=== PATIENT | female | born 1990 | race Caucasian/White ===

== ENCOUNTER 2021-11-24 13:01 | Outpatient (CLI) | payer BC, SELFPAY ==
--- NOTE | ~2021-11-24 | MR_ITS ---
EXAMINATION: MR brain/brain stem wo con DATE: 11/24/2021 13:39 INDICATION: Cavernous malformation. 13 weeks . TECHNIQUE: Magnetic resonance imaging (MRI) of the brain and brainstem was performed without intraven ous contrast. COMPARISON: None. FINDINGS: There are approximately 8 scattered foci of old hemorrhage in the brain. In the right parie gurdeep lobe, there is a an 8 mm mass of increased T2-weighted signal intensity and decreased T2*weighted signal intensity with rim of decreased T2 weighted signal intensity. There is no acute ischemic infa rct. The ventricles are normal in size. The orbits are normal. The paranasal sinuses are clear. The m astoid air cells are normal. IMPRESSION: 1. Multiple foci of old hemorrhage in the brain. This result may be seen with chronic hypertension, d iffuse axonal injury, vascular malformations, and vasculitis. The largest lesion in right parietal lo be has features typical of a cavernoma. Reviewed, dictated and finalized at location A. IMPRESSION: 1. Multiple foci of old hemorrhage in the brain. This result may be seen with c hronic hypertension, diffuse axonal injury, vascular malformations, and vasculi tis. The largest lesion in right parietal lobe has features typical of a cavern steve.
== END 2021-11-24 13:02 | disposition home or self-care (01) ==
LOC: ANHIMG 13:05
PROVIDERS: Visit Provider Obstetrics & Gynecology
DX: Q28.3 Other malformations of cerebral vessels (principal); G93.9 Disorder of brain, unspecified
CPT/HCPCS: 70551

== ENCOUNTER 2021-11-25 16:45 | Outpatient (CLI) | payer BC, SELFPAY ==
[2021-11-25 17:28] LABS: Basophils Percent Auto 0.3 % (0.2-1.2); Eosinophils Percent Auto 0.2 % (0-4.4); Hematocrit 31.8 % (37.0-47.0); Hemoglobin 11.1 g/dL (12.0-15.0); Immature Granulocyte Absolute 0.05 K/mm3 (0.00-0.031); Immature Granulocyte Percent A 0.5 % (0-0.5); Lymphocytes Absolute Auto 1.76 K/mm3 (0.9-3.2); Lymphocytes Percent Auto 16.2 % (18.3-44.2); Mean Corpuscular HGB Conc 34.9 g/dl (32-36); Mean Corpuscular Hemoglobin 32.8 pg (26-34); Mean Corpuscular Volume 94.1 fl (80-100); Mean Platelet Volume 9.4 fl (7.4-10.4); Monocytes Absolute Auto 0.8 K/mm3 (0.1-0.6); Monocytes Percent Auto 7.1 % (2.6-8.5); Neutrophils Absolute Auto 8.2 K/mm3 (1.3-6.7); Neutrophils Percent Auto 75.7 % (45.5-73.1); Platelet Count Result 367 k/mm3 (150-375); Red Blood Count 3.38 M/mm3 (4.2-5.4); Red Cell Distribution Width 12.3 % (11.5-14.5); White Blood Count 10.9 K/mm3 (4.5-10.0)
[2021-11-25 18:20] LABS: HIV 1/2 Ab P24 Ag Result Negative (Negative)
[2021-11-25 18:33] LABS: Hepatitis B Surface Antigen Negative (Negative); Rubella IgG Antibody 11.2 IU/ML
[2021-11-26 15:37] LABS: Rapid Plasma Reagin Non-Reactive (NonReactive)
[2021-12-05 08:46] LABS: CF Result NEGATIVE (NEGATIVE); Ethnicity W
== END 2021-11-25 16:46 | disposition home or self-care (01) ==
LOC: ANHLAB 16:47
PROVIDERS: Visit Provider Obstetrics & Gynecology
DX: N94.89 Other specified conditions associated with female genital organs and menstrual cycle (principal)
CPT/HCPCS: 36415; 81220; 84702; 85025; 86592; 86644; 86703; 86762; 86787; 86850; 86900; 86901; 87086; 87340; G0432

== ENCOUNTER 2022-03-10 09:41 | Observation (INO) | payer BC, SELFPAY ==
[2022-03-10] VITALS (15 sets, daily range): BP systolic 106; BP diastolic 63; PULSE 104–121; TEMP 36.9; O2SAT 99–100; BMI 22.3
--- NOTE | 2022-03-10 11:03 | OBADM ---
This patient, Cindy Villanueva, admitted to the OB room [facility] for observation. Patient/family oriented to hospital policies and general routines including ID bracelet, bed and alarms, visiting hours, pain management, procedures, bathroom and other care routines, personal items, smoking policy, room service/diet, and visiting hours. Patient/Family are encouraged to report perceived risks to care and to ask questions if they do not understand what they are told or what they should do.
[2022-03-10] MEDS: DEXTROSE 5%/LACTATED RINGERS 1,000 ML 125 ML IV CONT (11:31)
[2022-03-10] MEDS: ONDANSETRON INJ 4 MG/2 ML VIAL IV PUSH (11:32)
[2022-03-10] MEDS: FAMOTIDINE 20 MG/2 ML VIAL IV PUSH (11:38)
[2022-03-10 11:47] LABS: Hematocrit 32.6 % (37.0-47.0); Hemoglobin 11.3 g/dL (12.0-15.0); Mean Corpuscular HGB Conc 34.7 g/dl (32-36); Mean Corpuscular Hemoglobin 32.5 pg (26-34); Mean Corpuscular Volume 93.7 fl (80-100); Mean Platelet Volume 8.9 fl (7.4-10.4); Platelet Count Result 397 k/mm3 (150-375); Red Blood Count 3.48 M/mm3 (4.2-5.4); Red Cell Distribution Width 12.2 % (11.5-14.5); White Blood Count 16.1 K/mm3 (4.5-10.0)
[2022-03-10 11:52] LABS: Alanine Aminotransferase 15 U/L (6-35); Albumin Level 3.6 g/dL (3.5-5.1); Alkaline Phosphatase 83 U/L (38-126); Anion Gap 9 mmol/L (8-16); Aspartate Amino Transferase 20 U/L (14-36); Bilirubin,Total 0.3 mg/dL (0.2-1.3); Blood Urea Nitrogen 10 mg/dL (7-17); Calcium 8.4 mg/dL (8.4-10.2); Carbon Dioxide 22 mmol/L (22-30); Chloride 105 mmol/L (98-107); Estimated CRCL calculation 118 ml/min; Estimated Glomerular Filt Rate > 60; Glucose 108 mg/dL (65-110); Potassium 3.4 mmol/L (3.4-5.0); Sodium 136 mmol/L (137-145)
[2022-03-10 12:20] LABS: Band Neutrophils Percent 16 % (0-6); Lymphocytes Absolute Manual 0.16 K/mm3 (1.1-4.5); Monocytes Absolute Manual 0.16 K/mm3 (0.1-0.90); Monocytes Percent Manual 1 % (3-9); Neutrophils Absolute Manual 15.77 K/mm3 (1.7-7.2); Neutrophils Percent Manual 82 % (46-73); Platelet Estimate Adequate (Adequate); Schistocytes None Seen (NORMAL); Total Cells Counted 100
--- NOTE | 2022-03-10 12:34 | PC.NURSE ---
1005--Pt reports violent N/V for past 12 hours. denies vomiting since 9:00. Currently sipping water with no vomiting. Reports mild cramping. VSS.
--- NOTE | 2022-03-10 13:54 | PC.NURSE ---
pt reports feeling better. no vomiting noted. pt willing to try sips of apple juice.
--- NOTE | 2022-03-10 15:14 | PM.OBTRLD ---
OB - Triage/Final Diagnosis Visit Information Date of evaluation: 03/10/22 Reason for evaluation: other (acute gastritis) Comments/Additional reasons for admission: I have assessed the risk for this patient, Cindy Villanueva, and determined that she would benefit from observation care. Evaluation Laboratory results: Laboratory Tests 03/10/22 03/10/22 11:26 11:26 WBC 16.1 H RBC 3.48 L Hgb 11.3 L Hct 32.6 L MCV 93.7 MCH 32.5 MCHC 34.7 RDW 12.2 Plt Count 397 H MPV 8.9 Immature Gran % (Auto) Not Reportable Neut % (Auto) Not Reportable Lymph % (Auto) Not Reportable [place] % (Auto) Not Reportable Eos % (Auto) Not Reportable Baso % (Auto) Not Reportable Lymph # (Auto) Not Reportable [place] # (Auto) Not Reportable Eos # (Auto) Not Reportable Baso # (Auto) Not Reportable Abs Immat Gran (auto) Not Reportable Absolute Neuts (auto) Not Reportable Absolute Nucleated RBC Not Reportable Total Counted 100 Neutrophils % (Manual) 82 H Band Neutrophils % 16 H Lymphocytes % (Manual) 1.0 L Monocytes % (Manual) 1 L Nucleated RBC % Not Reportable Abs Neuts (Manual) 15.77 H Abs Lymphs (Manual) 0.16 L Abs Monocytes (Manual) 0.16 Platelet Estimate Adequate Schistocytes None seen Sodium 136 L Potassium 3.4 Chloride 105 Carbon Dioxide 22 Anion Gap 9 BUN 10 Creatinine 0.50 L Estim Creat Clear Calc 118 Estimated GFR > 60 Glucose 108 Calcium 8.4 Total Bilirubin 0.3 AST 20 ALT 15 Alkaline Phosphatase 83 Total Protein 7.0 Albumin 3.6 Vital signs: Vital Signs - 24 hr 03/10/22 09:57 03/10/22 10:02 03/10/22 10:07 Temperature Pulse Rate Blood Pressure Pulse Oximetry 100 100 100 03/10/22 10:12 03/10/22 10:17 03/10/22 10:21 Temperature Pulse Rate Blood Pressure Pulse Oximetry 100 100 100 03/10/22 10:26 03/10/22 10:31 03/10/22 10:36 Temperature Pulse Rate Blood Pressure Pulse Oximetry 100 100 100 03/10/22 10:41 03/10/22 10:46 03/10/22 10:51 Temperature Pulse Rate Blood Pressure Pulse Oximetry 100 99 100 03/10/22 10:56 03/10/22 10:59 03/10/22 11:03 Temperature 98.4 F Pulse Rate 107 H Blood Pressure 106/63 Pulse Oximetry 100
--- NOTE | 2022-03-10 15:16 | PC.NURSE ---
1515--Updated Dr. Ken on pt progress. will call prescriptions for Zofran and Pepcid to pharmacy. DC orders given.
== END 2022-03-10 15:24 | disposition home or self-care (01) ==
PROVIDERS: Admitting Provider Student in an Organized Health Care Education/Training Program; Visit Provider Student in an Organized Health Care Education/Training Program
DX: O99.613 Diseases of the digestive system complicating pregnancy, third trimester (principal); K29.70 Gastritis, unspecified, without bleeding; Z3A.28 28 weeks gestation of pregnancy
CPT/HCPCS: 36415; 80053; 85025; 96361; 96374; 96375; G0378; G0379; J2405; J7121

== ENCOUNTER 2022-03-20 12:09 | Outpatient (CLI) | payer BC, SELFPAY ==
[2022-03-20 14:16] LABS: Hematocrit 32.8 % (37.0-47.0); Hemoglobin 11.3 g/dL (12.0-15.0); Mean Corpuscular HGB Conc 34.5 g/dl (32-36); Mean Corpuscular Hemoglobin 32.3 pg (26-34); Mean Corpuscular Volume 93.7 fl (80-100); Mean Platelet Volume 9.5 fl (7.4-10.4); Platelet Count Result 462 k/mm3 (150-375); Red Cell Distribution Width 12.1 % (11.5-14.5); White Blood Count 12.9 K/mm3 (4.5-10.0)
[2022-03-20 14:41] LABS: Glucose 1 Hour PP 50gm Dose 91 mg/dL
[2022-03-20 15:23] LABS: HIV 1/2 Ab P24 Ag Result Negative (Negative)
== END 2022-03-20 12:10 | disposition home or self-care (01) ==
LOC: ANHLAB 12:10
PROVIDERS: Visit Provider Student in an Organized Health Care Education/Training Program
DX: Z34.90 Encounter for supervision of normal pregnancy, unspecified, unspecified trimester (principal); Z3A.00 Weeks of gestation of pregnancy not specified
CPT/HCPCS: 36415; 82947; 85027; 86703; G0432

== ENCOUNTER 2022-05-07 11:30 | Outpatient (RCR) | payer BC, SELFPAY ==
[2022-04-30 12:17] VITALS: BP 112/64; PULSE 77
== END 2022-06-19 15:11 | disposition home or self-care (01) ==
LOC: ANHOBOP 11:30
PROVIDERS: Visit Provider Student in an Organized Health Care Education/Training Program
DX: O36.5930 Maternal care for other known or suspected poor fetal growth, third trimester, not applicable or unspecified (principal); Z3A.35 35 weeks gestation of pregnancy
CPT/HCPCS: 59025

== ENCOUNTER 2022-06-01 03:27 | Inpatient (IN) | payer BC, SELFPAY ==
[2022-06-01] VITALS (17 sets, daily range): BP systolic 118–143; BP diastolic 87–132; PULSE 57–75; RESP 16–18; TEMP 36.7–36.8; BMI 24.1
--- NOTE | 2022-06-01 03:27 | LDADM ---
This patient, Cindy Villanueva, was admitted to Labor/Delivery/Recovery 103 on 06/01/22 at 03:27. Plans for labor, pain management and were discussed with patient. Patient/family oriented to hospital policies and general routines including ID bracelet, bed and alarms, visiting hours, pain management, procedures, bathroom and other care routines, personal items, smoking policy, room service/diet and guest tray routines, security routines, and visiting hours. Patient/Family are encouraged to report perceived risks to care and to ask questions if they do not understand what they are told or what they should do. See OBIX for further documentation.
[2022-06-01 05:25] LABS: Basophils Percent Auto 0.3 % (0.2-1.2); Eosinophils Absolute Auto 0.1 K/mm3 (0-0.3); Eosinophils Percent Auto 0.7 % (0-4.4); Hematocrit 31.4 % (37.0-47.0); Hemoglobin 10.4 g/dL (12.0-15.0); Immature Granulocyte Absolute 0.08 K/mm3 (0.00-0.031); Immature Granulocyte Percent A 0.8 % (0-0.5); Lymphocytes Percent Auto 22.4 % (18.3-44.2); Mean Corpuscular HGB Conc 33.1 g/dl (32-36); Mean Corpuscular Hemoglobin 30.1 pg (26-34); Monocytes Absolute Auto 0.8 K/mm3 (0.1-0.6); Monocytes Percent Auto 7.7 % (2.6-8.5); Neutrophils Percent Auto 68.1 % (45.5-73.1); Platelet Count Result 393 k/mm3 (150-375); Red Blood Count 3.45 M/mm3 (4.2-5.4); Red Cell Distribution Width 12.9 % (11.5-14.5); White Blood Count 10.3 K/mm3 (4.5-10.0)
--- NOTE | 2022-06-01 07:20 | WPDANESEPP ---
Anes - Eval Pre Procedure Procedure: labor epidural Date/Time: 06/01/22 07:20 Surgeon: juliann Preop Diagnosis: pain during labor Pre Op Diagnosis: bleeding Patient Data Age: 31 Gender: F Height: 1.63 m Weight: 63.8 kg Last Vital Signs Temp 36.8 C 06/01/22 04:30 Pulse 59 L 06/01/22 07:15 Resp 18 06/01/22 04:30 BP 138/94 H 06/01/22 07:15 O2 Del Method Room Air 06/01/22 04:04 Allergies Allergy/AdvReac Type Severity Reaction Status Date / Time Penicillins Allergy Intermediate Hives Verified 06/01/22 03:53 Sulfa (Sulfonamide Allergy Intermediate Hives Verified 06/01/22 03:53 Antibiotics) Home Medications Medication Instructions Recorded Confirmed Type prenat.vits,opal,oso-nhau-boypj 1 tablet PO DAILY 10/07/21 06/01/22 History pseudoephedrine HCl 240 mg 240 mg PO DAILY 06/01/22 06/01/22 History tablet,extended release 24 hr (Sudafed 24 Hour) Laboratory Tests 06/01/22 06/01/22 06/01/22 05:19 05:19 05:19 WBC 10.3 K/mm3 H K/mm3 (4.5-10.0) RBC 3.45 M/mm3 L M/mm3 (4.2-5.4) Hgb 10.4 g/dL L g/dL (12.0-15.0) Hct 31.4 % L % (37.0-47.0) MCV 91.0 fl fl (80-100) MCH 30.1 pg pg (26-34) MCHC 33.1 g/dl g/dl (32-36) RDW 12.9 % % (11.5-14.5) Plt Count 393 k/mm3 H k/mm3 (150-375) MPV 11.0 fl H fl (7.4-10.4) Immature Gran % (Auto) 0.8 % H % (0-0.5) Neut % (Auto) 68.1 % % (45.5-73.1) Lymph % (Auto) 22.4 % % (18.3-44.2) [place] % (Auto) 7.7 % % (2.6-8.5) Eos % (Auto) 0.7 % % (0-4.4) Baso % (Auto) 0.3 % % (0.2-1.2) Lymph # (Auto) 2.30 K/mm3 K/mm3 (0.9-3.2) [place] # (Auto) 0.8 K/mm3 H K/mm3 (0.1-0.6) Eos # (Auto) 0.1 K/mm3 K/mm3 (0-0.3) Baso # (Auto) 0.0 K/mm3 K/mm3 (0.0-0.1) Abs Immat Gran (auto) 0.08 K/mm3 H K/mm3 (0.00-0.031) Absolute Neuts (auto) 7.0 K/mm3 H K/mm3 (1.3-6.7) Absolute Nucleated RBC 0.0 K/mm3 K/mm3 (0.0-0.012) Nucleated RBC % 0.0 % % (0.0-0.2) RPR Pending Blood Type O Positive Antibody Screen Negative Patient hx anesthesia problems: none Family hx anesthesia problems: none Results Review: All pre-operative results and documents have been reviewed as part of the pre-operative evaluation. [facility] Past Medical History Medical History Cavernous malformation History of 1 Surgical History Surgical History [place] teeth removed Family History Family History Grandparent Breast cancer Other Depression Diabetes mellitus Social History Social History Smoking status: Never smoker Tobacco type: e-cigarettes/vaping Alcohol intake: former Substance use: never Lack of Transportation: No Lack of Food: Never True Current Housing: I Have Housing Concerned About Future Housing: No Difficulty Paying Gas/Electric Bills: No Difficulty Paying for Meds: No Currently Unemployed: No Education: Don't Know Difficulty w/ Childcare or Family Care: No Living arrangements: with family Occupation/Education: occupation Additional occupation/education comments: works from home Gender identity (if verbalized by the patient): Female Sexual Orientation (if Verbalized by the Patient): Straight or Heterosexual Spiritual care concerns: No Exam Day of Procedure 06/01/22 07:20
--- NOTE | 2022-06-01 08:03 | PM.OBTRLD ---
OB - Triage/Final Diagnosis Visit Information Date of evaluation: 06/01/22 Reason for evaluation: threatened labor and other (vaginal bleeding) Comments/Additional reasons for admission: I have assessed the risk for this patient, Cindy Villanueva, and determined that she would benefit from observation care. Evaluation Laboratory results: Laboratory Tests 06/01/22 06/01/22 05:19 05:19 WBC 10.3 H RBC 3.45 L Hgb 10.4 L Hct 31.4 L MCV 91.0 MCH 30.1 MCHC 33.1 RDW 12.9 Plt Count 393 H MPV 11.0 H Immature Gran % (Auto) 0.8 H Neut % (Auto) 68.1 Lymph % (Auto) 22.4 [place] % (Auto) 7.7 Eos % (Auto) 0.7 Baso % (Auto) 0.3 Lymph # (Auto) 2.30 [place] # (Auto) 0.8 H Eos # (Auto) 0.1 Baso # (Auto) 0.0 Abs Immat Gran (auto) 0.08 H Absolute Neuts (auto) 7.0 H Absolute Nucleated RBC 0.0 Nucleated RBC % 0.0 Blood Type O Positive Antibody Screen Negative Vital signs: Vital Signs - 24 hr 06/01/22 03:33 06/01/22 03:45 06/01/22 03:35 Temperature 98.1 F Pulse Rate 71 65 Respiratory Rate 16 Blood Pressure 142/99 H 128/90 Oxygen Delivery 06/01/22 04:00 06/01/22 04:15 06/01/22 04:30 Temperature 98.3 F Pulse Rate 67 69 67 Respiratory Rate 18 Blood Pressure 118/87 127/90 133/89 Oxygen Delivery 06/01/22 04:45 06/01/22 05:15 06/01/22 05:30 Temperature Pulse Rate 69 62 61 Respiratory Rate Blood Pressure 134/93 H 126/93 H 131/90 Oxygen Delivery 06/01/22 05:45 06/01/22 06:00 06/01/22 06:15 Temperature Pulse Rate 67 75 70 Respiratory Rate Blood Pressure 135/89 124/91 H 127/94 H Oxygen Delivery 06/01/22 06:30 06/01/22 06:45 06/01/22 07:00 Temperature Pulse Rate 61 57 L 66 Respiratory Rate Blood Pressure 121/89 143/132 H 130/92 H Oxygen Delivery 06/01/22 07:15 06/01/22 07:30 06/01/22 04:04 Temperature Pulse Rate 59 L 69 Respiratory Rate Blood Pressure 138/94 H 128/93 H Oxygen Delivery Room Air 06/01/22 04:00 Temperature Pulse Rate 67 Respiratory Rate Blood Pressure 118/87 Oxygen Delivery
[2022-06-01 11:30] LABS: Rapid Plasma Reagin Non-Reactive (NonReactive)
== END 2022-06-01 08:10 | disposition home or self-care (01) | DRG 833 ==
PROVIDERS: Admitting Provider Obstetrics & Gynecology; Visit Provider Student in an Organized Health Care Education/Training Program
DX: O26.859 Spotting complicating pregnancy, unspecified trimester (principal); O60.00 Preterm labor without delivery, unspecified trimester; Z3A.00 Weeks of gestation of pregnancy not specified
CPT/HCPCS: 36415; 85025; 86592; 86850; 86900; 86901

== ENCOUNTER 2022-06-01 14:23 | Inpatient (IN) | payer BC, SELFPAY ==
[2022-06-01] VITALS (12 sets, daily range): BP systolic 117–139; BP diastolic 79–100; PULSE 64–96; TEMP 36.3–36.5; O2SAT 98–100; BMI 24.5
--- NOTE | 2022-06-01 20:54 | OBADM ---
This patient, Cindy Villanueva, admitted to the OB room Labor/Delivery/Recovery 103 for observation. Patient/family oriented to hospital policies and general routines including ID bracelet, bed and alarms, visiting hours, pain management, procedures, bathroom and other care routines, personal items, smoking policy, room service/diet, and visiting hours. Patient/Family are encouraged to report perceived risks to care and to ask questions if they do not understand what they are told or what they should do.
--- NOTE | 2022-06-01 22:17 | PC.NURSE ---
Dr. ken called for an update on patient. I was unavailable to take the cll. Before calling him back, I went to check on the patient to see if she needed anything. She stated that she had small 'teaspoon amount of clear fluid earlier, more than her normal discharge. While speaking she said it just happened again. When I went to look at fluid, patient had about a paper side amount of bright red blood on her jimmy and a nickel sized clot. I relayed this information to Dr. Ken, as well as her lower abdominal pain when this happened, uncertainty of ROM, irregular contractions and patient is feeling them and reassuring FHR. Orders to make patient inpatient and start induction by placing cervidil if she was agreeable to plan of care.
--- NOTE | 2022-06-01 22:28 | LDADM ---
This patient, Cindy Villanueva, was admitted to Labor/Delivery/Recovery 103 on 06/01/22 at 22:28. Plans for labor, pain management and were discussed with patient. Patient/family oriented to hospital policies and general routines including ID bracelet, bed and alarms, visiting hours, pain management, procedures, bathroom and other care routines, personal items, smoking policy, room service/diet and guest tray routines, security routines, and visiting hours. Patient/Family are encouraged to report perceived risks to care and to ask questions if they do not understand what they are told or what they should do. See OBIX for further documentation.
[2022-06-01] MEDS: DINOPROSTONE 10 MG VAG INSERT VAGINAL (23:03)
[2022-06-01 23:19] LABS: Basophils Percent Auto 0.2 % (0.2-1.2); Eosinophils Absolute Auto 0.1 K/mm3 (0-0.3); Eosinophils Percent Auto 0.4 % (0-4.4); Hematocrit 30.8 % (37.0-47.0); Hemoglobin 10.2 g/dL (12.0-15.0); Immature Granulocyte Absolute 0.07 K/mm3 (0.00-0.031); Immature Granulocyte Percent A 0.5 % (0-0.5); Lymphocytes Absolute Auto 2.34 K/mm3 (0.9-3.2); Lymphocytes Percent Auto 18.2 % (18.3-44.2); Mean Corpuscular HGB Conc 33.1 g/dl (32-36); Mean Corpuscular Hemoglobin 29.7 pg (26-34); Mean Corpuscular Volume 89.5 fl (80-100); Mean Platelet Volume 11.2 fl (7.4-10.4); Monocytes Absolute Auto 1.1 K/mm3 (0.1-0.6); Monocytes Percent Auto 8.1 % (2.6-8.5); Neutrophils Absolute Auto 9.4 K/mm3 (1.3-6.7); Neutrophils Percent Auto 72.6 % (45.5-73.1); Platelet Count Result 402 k/mm3 (150-375); Red Blood Count 3.44 M/mm3 (4.2-5.4); Red Cell Distribution Width 12.9 % (11.5-14.5); White Blood Count 12.9 K/mm3 (4.5-10.0)
--- NOTE | 2022-06-01 23:31 | PC.NURSE ---
Called Dr. Mix to update him on patient. Cervidil was placed at 2300 and since then she has had 3 gushed of bleeding with clots, and she feels pain with the gushes. Orders to pull the cervidil and give terbutaline to stop the contractions. Orders to give up to 3 doses of terbutaline as needed. If patient continues to bleed after slowing things down, orders to call him to update.
[2022-06-01] MEDS: TERBUTALINE SULFATE 1 MG/ML VIAL 0.25 MG SUB-Q (23:41)
--- NOTE | 2022-06-01 23:53 | PC.NURSE ---
Addendum entered by Carrie Molina RN 06/02/22 01:21: 0120 blood cot the size of half dollar after a cough Original Note: Gushes of blood at the following times: 2200 paper sized bright red blood with small clot 2255 with red tinged fluid noted 2327 bleeding with small clot 2328 paper sized bright red blood with small clot 2350 with some fluid noted
[2022-06-02] VITALS (103 sets, daily range): BP systolic 97–141; BP diastolic 57–92; PULSE 58–108; RESP 15–18; TEMP 36.2–37.6; O2SAT 86–100
[2022-06-02] MEDS: fentaNYL CITRATE INJ (*CRX) 100 MCG/2 ML VIAL 50 MCG IV PUSH (04:57)
[2022-06-02] MEDS: fentaNYL CITRATE INJ (*CRX) 100 MCG/2 ML VIAL IV PUSH ×2 (06:46→08:55)
--- NOTE | 2022-06-02 07:37 | PM.IMHP ---
H&P: HPI History of Present Illness Date/Time: 06/02/22 07:37 Chief Complaint: vaginal bleeding intrauterine at term Narrative: 31 yo G1 at 40w3d who presents with complaint of vaginal bleeding in the setting of low lying placenta. Pt was having irregular contractions. Pt had cervidil placed last night in attempt to ripen the cervix. Cervidil caused more bleeding. Cervix remained unchanged. FHT remained reassuring. discussed unchanged cervix and continued bleeding. Review of Systems Cardiovascular: Cardiovascular: Denies chest pain, Denies leg edema, Denies palpitations, Denies dyspnea and Denies dyspnea on exertion Respiratory: Respiratory: Denies cough, Denies dyspnea and Denies dyspnea on exertion Gastrointestinal: Gastrointestinal: Denies abdominal pain, Denies constipation, Denies diarrhea, Denies nausea and Denies vomiting Genitourinary: Genitourinary: Denies hematuria, Denies urinary frequency, Denies dysuria, Denies pelvic pain, Denies urinary incontinence and Denies vaginal discharge Neurologic: Reports system reviewed and no additional complaints, except as documented Psychiatric: Psychiatric: Reports no additional psychiatric complaints Endocrine: Endocrine: Denies palpitations PMFSH Past Medical History Medical History Cavernous malformation History of 1 Surgical History Surgical History [place] teeth removed Family History Family History Grandparent Breast cancer Other Depression Diabetes mellitus Social History Social History Smoking status: Never smoker Tobacco type: e-cigarettes/vaping Alcohol intake: former Substance use: never Lack of Transportation: No Lack of Food: Never True Current Housing: I Have Housing Concerned About Future Housing: No Difficulty Paying Gas/Electric Bills: No Difficulty Paying for Meds: No Currently Unemployed: No Education: Don't Know Difficulty w/ Childcare or Family Care: No Living arrangements: with family Occupation/Education: occupation Additional occupation/education comments: works from home Gender identity (if verbalized by the patient): Female Sexual Orientation (if Verbalized by the Patient): Straight or Heterosexual Spiritual care concerns: No Meds Home Medications and Allergies Home Medications Medication Instructions Recorded Confirmed Type prenat.vits,opal,hvz-jipx-aysja 1 tablet PO DAILY 10/07/21 06/01/22 History pseudoephedrine HCl 240 mg 240 mg PO DAILY 06/01/22 06/01/22 History tablet,extended release 24 hr (Sudafed 24 Hour) Allergies Allergy/AdvReac Type Severity Reaction Status Date / Time Penicillins Allergy Intermediate Hives Verified 06/01/22 20:53 Sulfa (Sulfonamide Allergy Intermediate Hives Verified 06/01/22 20:53 Antibiotics) Vital Signs Vital Signs - 24 hr 06/01/22 19:00 06/01/22 19:30 06/01/22 20:00 Temperature 97.4 F L Pulse Rate 77 75 76 Blood Pressure 117/100 H 123/84 139/90 Pulse Oximetry Oxygen Delivery 06/01/22 20:30 06/01/22 21:00 06/01/22 23:11 Temperature Pulse Rate 75 71 64 Blood Pressure 121/83 117/79 134/85 Pulse Oximetry Oxygen Delivery 06/01/22 23:39 06/01/22 23:44 06/01/22 23:49 Temperature Pulse Rate Blood Pressure Pulse Oximetry 100 99 100 Oxygen Delivery 06/01/22 23:54 06/01/22 23:59 06/02/22 00:04 Temperature Pulse Rate Blood Pressure Pulse Oximetry 99 98 99 Oxygen Delivery 06/02/22 00:09 06/02/22 00:14 06/02/22 00:19 Temperature Pulse Rate Blood Pressure Pulse Oximetry 99 98 99 Oxygen Delivery 06/02/22 00:24 06/02/22 00:28 06/02/22 00:33 Temperature Pulse Rate Blood Pressure Pulse Oximetry 98 86 L 97 O
[2022-06-02] MEDS: LACTATED RINGERS 1,000 ML 999 ML IV CONT (10:30)
[2022-06-02] MEDS: ceFAZolin 2 GM/D5W 50 ML 2 GM/50 ML BAG IVPB (11:26)
--- NOTE | 2022-06-02 11:27 | WPDANESEPPF ---
Anes - Initial Pre Proc Eval Procedure: Operation Date: 06/02/22 12:00 Proposed Procedures p Section - Eliazar Ken MD Date/Time: 06/02/22 11:27 Surgeon: Eliazar Ken MD Pre Op Diagnosis: Bleeding Patient Data Age: 31 Gender: F Height: 1.63 m Weight: 65 kg Last Vital Signs Temp 36.3 C L 06/02/22 08:56 Pulse 72 06/02/22 10:01 BP 135/92 H 06/02/22 10:01 Pulse Ox 100 06/02/22 04:57 O2 Del Method Room Air 06/01/22 18:15 Allergies Allergy/AdvReac Type Severity Reaction Status Date / Time Penicillins Allergy Intermediate Hives Verified 06/01/22 20:53 Sulfa (Sulfonamide Allergy Intermediate Hives Verified 06/01/22 20:53 Antibiotics) Home Medications Medication Instructions Recorded Confirmed Type prenat.vits,opal,xjk-pejx-mrgzx 1 tablet PO DAILY 10/07/21 06/01/22 History pseudoephedrine HCl 240 mg 240 mg PO DAILY 06/01/22 06/01/22 History tablet,extended release 24 hr (Sudafed 24 Hour) Laboratory Tests 06/01/22 23:09 WBC 12.9 K/mm3 H K/mm3 (4.5-10.0) RBC 3.44 M/mm3 L M/mm3 (4.2-5.4) Hgb 10.2 g/dL L g/dL (12.0-15.0) Hct 30.8 % L % (37.0-47.0) MCV 89.5 fl fl (80-100) MCH 29.7 pg pg (26-34) MCHC 33.1 g/dl g/dl (32-36) RDW 12.9 % % (11.5-14.5) Plt Count 402 k/mm3 H k/mm3 (150-375) MPV 11.2 fl H fl (7.4-10.4) Immature Gran % (Auto) 0.5 % % (0-0.5) Neut % (Auto) 72.6 % % (45.5-73.1) Lymph % (Auto) 18.2 % L % (18.3-44.2) [place] % (Auto) 8.1 % % (2.6-8.5) Eos % (Auto) 0.4 % % (0-4.4) Baso % (Auto) 0.2 % % (0.2-1.2) Lymph # (Auto) 2.34 K/mm3 K/mm3 (0.9-3.2) [place] # (Auto) 1.1 K/mm3 H K/mm3 (0.1-0.6) Eos # (Auto) 0.1 K/mm3 K/mm3 (0-0.3) Baso # (Auto) 0.0 K/mm3 K/mm3 (0.0-0.1) Abs Immat Gran (auto) 0.07 K/mm3 H K/mm3 (0.00-0.031) Absolute Neuts (auto) 9.4 K/mm3 H K/mm3 (1.3-6.7) Absolute Nucleated RBC 0.0 K/mm3 K/mm3 (0.0-0.012) Nucleated RBC % 0.0 % % (0.0-0.2) Patient hx anesthesia problems: none Family hx anesthesia problems: none Results Review: All pre-operative results and documents have been reviewed as part of the pre-operative evaluation. [facility] Past Medical History Medical History Cavernous malformation History of 1 Surgical History Surgical History [place] teeth removed Family History Family History Grandparent Breast cancer Other Depression Diabetes mellitus Social History Social History Smoking status: Never smoker Tobacco type: e-cigarettes/vaping Alcohol intake: former Substance use: never Lack of Transportation: No Lack of Food: Never True Current Housing: I Have Housing Concerned About Future Housing: No Difficulty Paying Gas/Electric Bills: No Difficulty Paying for Meds: No Currently Unemployed: No Education: Don't Know Difficulty w/ Childcare or Family Care: No Living arrangements: with family Occupation/Education: occupation Additional occupation/education comments: works from home Gender identity (if verbalized by the patient): Female Sexual Orientation (if Verbalized by the Patient): Straight or Heterosexual Spiritual care concerns: No Anes - Eval Final PreProcedure Day of Procedure 06/02/22 11:27 Patient weight: normal Heart: regular rate and rhythm Lungs: clear to auscultation and normal air movement Airway: Mallampati scale class II Neurological: alert and oriented Last oral intake: >/= 8 hours ASA classification: III Emergent: no Anesthetic plan: proceed Anesthesia type and monitoring: regional spinal Results Review: All pre-operative results and documents have been reviewed as part of the pre-ope
--- NOTE | 2022-06-02 12:19 | W.PM.PROC2 ---
Procedure Note - Detailed Date of Procedure 06/02/22 Pre-op Diagnosis Bleeding intrauterine at term Post-op Diagnosis Same Procedure Performed low transverse section Surgeon Eliazar Ken MD Anesthesia Spinal and Epidural Indications vaginal bleeding Description of Procedure The patient was taken to the operating room. A combined spinal epidural anesthesic was administered and found to be adequate at a t-10 level. The patient was placed in a supine position with a slight left lateral tilt. A reynolds catheter was placed with return of clear urine. A Bovie grounding pad was placed. Surgical prep was performed and surgical drapes were placed. A surgical time out was performed. A Pfannenstiel skin incision was then made with the scalpel and carried through to the underlying layer of fascia. The fascia was then incised in the midline and the incision was extended laterally with the Bray scissors. The superior aspect of the fascia was then grasped with the [place] clamps, elevated, and the underlying rectus muscles dissected off bluntly and sharply. Attention was then turned to the inferior aspect of this incision which, in a similar fashion, was grasped, tented up with the [place] clamps, and the rectus muscles dissected off both bluntly and sharply. The rectus muscles were then in the midline. The peritoneum was identified and entered bluntly. The peritoneal incision was then extended superiorly and inferiorly with good visualization of the bladder. The vesico-uterine serosa was identified and dissected to create a bladder flap. The bladder blade was reinserted. The uterus was inspected for rotation. A low-transverse uterine incision was made sharply with the scalpel and entry was made into the uterine cavity. An amniotomy was made and copious amounts of clear fluid were noted on return. The uterine incision was extended laterally bluntly. The bladder blade was removed and the fetus was delivered atraumatically. The nose and mouth were suctioned with a bulb syringe. The umbilical cord was clamped twice and cut. The was handed off to the waiting staff. At the time of the delivery, the had good color, tone and grimace. The cried with minimal stimulation. A second segment of umbilical cord was clamped and cut for cord blood gasses. Cord blood was collected for determination of the blood type and for direct [place]. The placenta was delivered spontaneously without difficulty. The placenta appeared grossly normal and complete. The uterus was exteriorized and cleared of all clots and debris. The uterine incision was repaired using 0-monocryl suture in a running fashion. The uterine closure was inspected for hemostasis. The posterior aspect of the uterus and the broad ligaments were inspected and the posterior cul-de-sac cleared of fluid and blood clots. The uterine closure was again inspected and found to be hemostatic. The uterus was returned to the abdominal cavity. The pericolic gutters were inspected and were cleared of all blood clots and debris. The uterine closure was then re inspected to ensure hemostasis as were all subfascial tissues. The peritoneum was closed using 3-0 vicryl in a running fashion. The fascia was reapproximated with 0-vicryl in a running fashion. The subcutaneous tissue was irrigated and hemostasis achieved with electrocautery. The skin was closed with 4-0 vicryl in a subcuticular fashion. A sterile dressing was applied to the wound. The patient tolerated the procedure well. Sponge, lap and needle counts were correct times three. The patient was taken to recovery in stable condition and without anticipated complications. Estimated Blood Loss 500 Drains No Packing No Pathology None sent Complications No immediate complications Condition Stable Disposition Floor [facility] Billing Surgery - Charge Forward: Surgery Billing
--- NOTE | 2022-06-02 12:21 | PM.OBPRVD ---
OB - Delivery Note Procedure Procedure: Procedures Operation Date: 06/02/22 12:00 <No data on this case meets the specified criteria> Events: Other (vaginal bleeding) Induction method: Per Cervidil Protocol Delivery monitor: External FHT Route of delivery: Prior to decision for section, [facility] labor guidelines were considered and discussed with the patient and staff. Decision made to proceed with the section.: Yes [place] Baby Date of : 06/02/22 Time of : 11:53 Weeks of gestation at delivery: 40 Infant gender: Female Weight (pounds): 6 Weight (ounces): 5 presentation: vertex Placenta delivery description: Expressed Cord Vessel Description: 3 Vessels score one minute: 8 score five minutes: 9
[2022-06-02] MEDS: miSOPROStol 200 MCG TABLET 1000 MCG RECTAL (13:15)
[2022-06-02] MEDS: MORPHINE SULFATE INJ (*CRX) 10 MG/ML AMP 2 MG IV PUSH ×3 (13:19→13:45)
[2022-06-02] MEDS: TRANEXAMIC ACID 1,000MG/ISO100 1,000 MG/100 ML BAG 200 MG IVPB (13:39)
[2022-06-02 13:47] LABS: Hematocrit 27.8 % (37.0-47.0); Hemoglobin 9.1 g/dL (12.0-15.0); Mean Corpuscular HGB Conc 32.7 g/dl (32-36); Mean Corpuscular Hemoglobin 30.2 pg (26-34); Mean Corpuscular Volume 92.4 fl (80-100); Mean Platelet Volume 10.8 fl (7.4-10.4); Platelet Count Result 390 k/mm3 (150-375); Red Blood Count 3.01 M/mm3 (4.2-5.4)
--- NOTE | 2022-06-02 13:52 | PC.NURSE ---
from [id number] all charting on [facility] was done by Morenita Mckeon RN, not Paulina Ford RN
--- NOTE | 2022-06-02 13:53 | PC.NURSE ---
1310: RN called OB to update on QBL of over 1000 with clots and clots expressed. Orders to give 1000 mcg of Cytotec and OB stated he is on his way to the hospital. 1324: Dr. Ken at bedside to ultrasound pt. Orders to give 1 g of TXA and draw a CBC.
[2022-06-02] MEDS: OXYTOCIN 30 UNITS/NS 500 ML 30 UNITS/500 ML BAG 125 UNITS IV CONT (14:23)
--- NOTE | 2022-06-02 14:42 | PM.OBPNVD ---
OB - PN: Subj Subjective Date/time seen: 06/02/22 1330 Interval history: 31-year-old status post primary for vaginal bleeding. Called to patient's room for hemorrhage. Patient was noted to pass several large clots after her . Estimated blood collected was 1000 mL. Patient was resting comfortable in bed upon arrival. Bedside ultrasound was performed which showed small amount of clot throughout the uterus. The fundus palpated moderately firm. Uterus was below the umbilicus. Vital signs remained stable. Patient complaining of some cramping pain postop. OB - PN: Obj Data Labs 06/02/22 13:40 Labs: Laboratory Results - last 24 hr 06/01/22 06/02/22 23:09 13:40 WBC 12.9 H 19.0 H RBC 3.44 L 3.01 L Hgb 10.2 L 9.1 L Hct 30.8 L 27.8 L MCV 89.5 92.4 MCH 29.7 30.2 MCHC 33.1 32.7 RDW 12.9 13.0 Plt Count 402 H 390 H MPV 11.2 H 10.8 H Immature Gran % (Auto) 0.5 Neut % (Auto) 72.6 Lymph % (Auto) 18.2 L [place] % (Auto) 8.1 Eos % (Auto) 0.4 Baso % (Auto) 0.2 Lymph # (Auto) 2.34 [place] # (Auto) 1.1 H Eos # (Auto) 0.1 Baso # (Auto) 0.0 Abs Immat Gran (auto) 0.07 H Absolute Neuts (auto) 9.4 H Absolute Nucleated RBC 0.0 Nucleated RBC % 0.0 OB - PN A/P Assessment and Plan (1) hemorrhage: Code(s): O72.1 - Other immediate hemorrhage Status: Acute Assessment and Plan: called patient's room postop for acute bleeding Patient had passed approximately 1000 mL of clot per vagina postop Bleeding was stable upon examination Bedside ultrasound showed a small amount of clot within the endometrial cavity Uterus palpated moderately firm below the umbilicus 1000 mcg of Cytotec administered as well as 1000 mg IV TXA CBC ordered Will continue to monitor bleeding Vital signs remained stable Plan Plan: routine care Time Spent With Patient Time: Total time spent is greater than 50% in coordination of care (as documented) at patient's floor/unit and/or counseling patient: Time with patient: less than 15 minutes Review of Systems Review of Systems: All systems reviewed & are unremarkable except as noted in HPI and below Exam Const: General: cooperative, comfortable, no acute distress, well developed and alert Resp: Effort & Inspection: normal respiratory effort and able to speak in complete sentences Cardio: Rate: tachycardic GI: Inspection: incision ( Incision intact) GI Palp: Yes abdominal tenderness ( appropriate incisional tenderness), Yes Soft to palpation, No Guarding due to palpation present (GI) and No Rigid due to palpation
--- NOTE | 2022-06-02 15:09 | PC.NURSE ---
Patient transferred to post room #[id number] via ( stretcher ). Support person present. Oriented to unit, room, information board, rooming in, admission packet and security measures. Patient verbalizes understanding.
[2022-06-02] MEDS: HYDROcodone/acetaminophen (*CRX) 10-325 MG TABLET 1 TAB PO ×2 (15:41→23:00)
[2022-06-02] MEDS: POLYSACCHARIDE IRON COMPLEX 150 MG CAPSULE PO (15:43)
[2022-06-02] MEDS: DOCUSATE SODIUM 100 MG CAPSULE PO (15:43)
[2022-06-02] MEDS: DEXTROSE 5%/0.45% SOD CHL 1,000 ML 125 ML IV CONT (20:15)
[2022-06-02] MEDS: IBUPROFEN 600 MG TABLET PO (23:00)
[2022-06-03] VITALS (12 sets, daily range): BP systolic 101–136; BP diastolic 63–84; PULSE 65–97; RESP 16–20; TEMP 36.4–36.9; O2SAT 97–100
[2022-06-03] MEDS: HYDROcodone/acetaminophen (*CRX) 10-325 MG TABLET 1 TAB PO ×5 (03:45→22:54)
[2022-06-03 06:09] LABS: Basophils Percent Auto 0.2 % (0.2-1.2); Eosinophils Percent Auto 0.2 % (0-4.4); Hematocrit 22.1 % (37.0-47.0); Hemoglobin 7.3 g/dL (12.0-15.0); Immature Granulocyte Absolute 0.07 K/mm3 (0.00-0.031); Immature Granulocyte Percent A 0.6 % (0-0.5); Lymphocytes Absolute Auto 1.72 K/mm3 (0.9-3.2); Lymphocytes Percent Auto 13.7 % (18.3-44.2); Mean Corpuscular Hemoglobin 30.8 pg (26-34); Mean Corpuscular Volume 93.2 fl (80-100); Mean Platelet Volume 11.1 fl (7.4-10.4); Neutrophils Absolute Auto 9.7 K/mm3 (1.3-6.7); Neutrophils Percent Auto 77.3 % (45.5-73.1); Platelet Count Result 322 k/mm3 (150-375); Red Blood Count 2.37 M/mm3 (4.2-5.4); Red Cell Distribution Width 13.1 % (11.5-14.5); White Blood Count 12.5 K/mm3 (4.5-10.0)
--- NOTE | 2022-06-03 08:01 | PM.OBPNVD ---
OB - PN: Subj Subjective Date/time seen: 06/03/22 08:01 Interval history: 31-year-old status post primary for vaginal bleeding. patient doing well this morning. Patient reports a small amount of bleeding with fundal massage. Patient is ambulating. She is tolerating p.o. without nausea or vomiting. Patient reports some incisional pain but states she is comfortable at rest with pain medications. Patient denies any palpitations, shortness of breath, near syncope. Patient comments: no complaints, pain well controlled, tolerating diet and flatus present OB - PN: Obj Data Labs 06/03/22 04:48 Labs: Laboratory Results - last 24 hr 06/02/22 06/03/22 13:40 04:48 WBC 19.0 H 12.5 H RBC 3.01 L 2.37 L Hgb 9.1 L 7.3 L Hct 27.8 L 22.1 L MCV 92.4 93.2 MCH 30.2 30.8 MCHC 32.7 33.0 RDW 13.0 13.1 Plt Count 390 H 322 MPV 10.8 H 11.1 H Immature Gran % (Auto) 0.6 H Neut % (Auto) 77.3 H Lymph % (Auto) 13.7 L [place] % (Auto) 8.0 Eos % (Auto) 0.2 Baso % (Auto) 0.2 Lymph # (Auto) 1.72 [place] # (Auto) 1.0 H Eos # (Auto) 0.0 Baso # (Auto) 0.0 Abs Immat Gran (auto) 0.07 H Absolute Neuts (auto) 9.7 H Absolute Nucleated RBC 0.0 Nucleated RBC % 0.0 OB - PN A/P Assessment and Plan (1) hemorrhage: Code(s): O72.1 - Other immediate hemorrhage Status: Acute Assessment and Plan: H/ H 7.05/20 this morning Patient asymptomatic Acute blood loss anemia Recommended transfusion. Risks, benefits, alternatives discussed. Will transfuse 2 units packed red blood cells Plan day: 1 Plan: routine care Comments: patient doing well H/H 7.05/20. patient asymptomatic. afebrile, VSS incision C/D/I [place] removed, voiding spontaneously continue routine post op care Time Spent With Patient Time: Total time spent is greater than 50% in coordination of care (as documented) at patient's floor/unit and/or counseling patient: Time with patient: less than 15 minutes Review of Systems Constitutional: Constitutional: Reports no additional constitutional complaints Cardiovascular: Cardiovascular: Reports no additional cardiovascular complaints Respiratory: Respiratory: Reports no additional respiratory complaints Gastrointestinal: Gastrointestinal: Reports no additional gastrointestinal complaints Genitourinary: Genitourinary: Reports no additional female genitourinary complaints Exam Const: General: comfortable and no acute distress Resp: Effort & Inspection: normal respiratory effort Auscultation: clear to auscultation bilaterally Cardio: Rate: regular rate GI: GI Palp: Yes Soft to palpation, Yes Tenderness to palpation present (GI) (around incision ) and No Guarding due to palpation present (GI) Auscultation: normal bowel sounds Other: incision C/D/I, covered with Dermabond Psych: Appearance: grossly normal Mental Status: mental status grossly normal Affect: normal affect
--- NOTE | 2022-06-03 08:02 | WPDANLDPN2 ---
Anes-Prog Note L&D Date/Time: 06/03/22 08:02 Comfortable throughout: section Neuraxial method: spinal Epidural/Spinal procedure site: clean & non-tender Neuro status: Neuro function grossly intact. Cardiovascular status: normal Respiratory status: normal Airway patency: baseline Mental status: baseline Post-Op hydration status: normal Vital Signs: Last Vital Signs Temp 36.9 C 06/03/22 03:50 Pulse 90 06/03/22 03:50 Resp 18 06/03/22 03:50 BP 109/71 06/03/22 03:50 Pulse Ox 100 06/03/22 03:50 O2 Del Method Room Air 06/03/22 03:50 Pain score (VAS): 2 I/O: Intake & Output 06/02/22 06/03/22 06/03/22 23:59 07:59 15:59 Intake Total 800 1800 Output Total 750 1100 Balance 50 700 Post-procedural complaints: none Patient feedback: Patient satisfied with anesthetic care.
--- NOTE | 2022-06-03 08:03 | WPDANLDNPN2 ---
Anes-Prog Note L&D-Neuraxial Date/Time: 06/03/22 08:03 Neuraxial medications: intrathecal PF morphine Opiod-related complaints: none Patient feedback: Patient satisfied with post-operative pain management.
[2022-06-03] MEDS: IBUPROFEN 600 MG TABLET PO ×2 (09:42→18:30)
[2022-06-03] MEDS: DOCUSATE SODIUM 100 MG CAPSULE PO ×2 (09:43→16:02)
[2022-06-03] MEDS: POLYSACCHARIDE IRON COMPLEX 150 MG CAPSULE PO ×2 (09:43→16:02)
[2022-06-03] MEDS: MULTIVIT/MIN/PREN/FOL AC/IRON TABLET 1 TAB PO (09:43)
[2022-06-03] MEDS: SODIUM CHLORIDE 0.9% IV 250 ML 30 ML IV CONT (09:44)
[2022-06-03] MEDS: SIMETHICONE 80 MG TAB.CHEW PO ×3 (11:21→18:30)
[2022-06-04] MEDS: HYDROcodone/acetaminophen (*CRX) 10-325 MG TABLET 1 TAB PO ×6 (02:58→23:50)
[2022-06-04] MEDS: IBUPROFEN 600 MG TABLET PO ×4 (02:58→23:50)
[2022-06-04] MEDS: LANOLIN (LANSINOH) 7.5 GM CREAM 1 APPLIC TOPICAL (03:00)
[2022-06-04 07:50] VITALS: BP 142/86; PULSE 62; RESP 16; TEMP 36.4; O2SAT 100
[2022-06-04] MEDS: MULTIVIT/MIN/PREN/FOL AC/IRON TABLET 1 TAB PO (08:11)
[2022-06-04] MEDS: DOCUSATE SODIUM 100 MG CAPSULE PO ×2 (08:11→16:42)
[2022-06-04] MEDS: POLYSACCHARIDE IRON COMPLEX 150 MG CAPSULE PO ×2 (08:11→16:42)
[2022-06-04 08:25] LABS: Hematocrit 32.2 % (37.0-47.0); Hemoglobin 10.5 g/dL (12.0-15.0)
--- NOTE | 2022-06-04 10:29 | PM.OBDSVD ---
DS: Admitting Diagnosis Discharge Date 06/05/22 Admitting Diagnosis intrauterine at term Vaginal bleeding Low-lying placenta DS: Discharge Diagnosis Discharge Diagnosis (1) Supervision of high risk , unspecified, third trimester: Code(s): O09.93 - Supervision of high risk , unspecified, third trimester Status: Acute OB - DS: Summary Hospital Course Hospital Course: 31-year-old G1 at 38 weeks 3 days who presented with vaginal bleeding in the setting of low lying placenta. Patient was observed and continued to have vaginal bleeding. Induction of labor was attempted but not tolerated due to amount of bleeding. Proceed with primary . was complicated by hemorrhage. Patient received Cytotec and TXA. Resulted in Acute blood loss anemia requiring 2 units packed red blood cells. remainder post course was uncomplicated OB Procedures : None OB Procedures Intrapartum: OB Procedures: : Transfusion Peripartum Data Delivery Method: Section Procedures: Procedures Operation Date: 06/02/22 12:00 Actual Procedure Side Surgeon p Section Not Applicable Eliazar Ken MD complications: transfusion Status at Discharge Functional status at discharge: independent ambulation Overall status at discharge: patient is progressing back to baseline Time Spent with Patient Time attestation: Total time spent providing and/or coordinating discharge services: Time spent: Less than 30 minutes Exam Const: General: comfortable and no acute distress Resp: Effort & Inspection: normal respiratory effort Auscultation: clear to auscultation bilaterally Cardio: Rate: regular rate GI: Inspection: non-distended GI Palp: Yes Soft to palpation, No Firmness to palpation present (GI), Yes Tenderness to palpation present (GI) (mild tenderness over incision ) and No Guarding due to palpation present (GI) Auscultation: normal bowel sounds Psych: Appearance: grossly normal Mental Status: mental status grossly normal DS: Data Data Completed and Pending Labs on day of discharge: Labs from last 24 hours 06/04/22 06/01/22 08:17 05:19 Hgb 10.5 L D Hct 32.2 L Crossmatch See Detail Discharge Plan Discharge Discharging Clinician: Eliazar Ken Patient Disposition: Home, Self-Care Activity: pelvic rest Diet: regular Patient Instructions: Antibiotic Form, (DC) Stand Alone Forms: General Discharge Information Follow-up/Referrals: Eliazar Ken MD [Physician] - Discharge Medications: New oxycodone-acetaminophen 5-325 mg tablet 1 tablet PO Q6H PRN (Reason: pain) Qty: 30 0RF ibuprofen 600 mg tablet 600 mg PO Q6H PRN (Reason: pain) Qty: 30 0RF Continued prenat.vits,poal,[id number] Tablet 1 tablet PO DAILY Sudafed 24 Hour 240 mg Tablet Extended Release 24 Hr 240 mg PO DAILY Date of admission: 06/01/22 22:30 Primary Care Provider: PHYSICIAN,[employer]IC[employer] CHIEF Admitting Provider: Eliazar Ken Attending physician on admission: Eliazar Ken Condition: Stable
[2022-06-04] MEDS: SIMETHICONE 80 MG TAB.CHEW PO (11:12)
--- NOTE | 2022-06-04 13:07 | P.PNOB_ITS ---
OB - PN: Subj Subjective Date/time seen: 06/04/22 13:07 Interval history: Patient doing well today without complaints. Patient is status post transfusion after acute blood loss anemia. Patient feels much better. Patient states she feels much more energized. She has not had any continued bleeding. Patient is tolerating p.o.. She still states she is having some incisional discomfort. Patient comments: no complaints, pain well controlled, tolerating diet and flatus present OB - PN: Obj Data Labs 06/04/22 08:17 Labs: Laboratory Results - last 24 hr 06/01/22 06/04/22 05:19 08:17 Hgb 10.5 L D Hct 32.2 L Crossmatch See Detail OB - PN A/P Plan day: 1 Plan: routine care Comments: patient doing well H/H Improved after transfusion, patient remains asymptomatic. No further bleeding afebrile, VSS incision C/D/I patient requesting to stay 1 more night in the hospital. continue routine post op care Time Spent With Patient Time: Total time spent is greater than 50% in coordination of care (as documented) at patient's floor/unit and/or counseling patient: Time with patient: less than 15 minutes Review of Systems Constitutional: Constitutional: Reports no additional constitutional complaints Cardiovascular: Cardiovascular: Reports no additional cardiovascular complaints Respiratory: Respiratory: Reports no additional respiratory complaints Gastrointestinal: Gastrointestinal: Reports no additional gastrointestinal complaints Genitourinary: Genitourinary: Reports no additional female genitourinary complaints Exam Const: General: comfortable and no acute distress Resp: Effort & Inspection: normal respiratory effort Auscultation: clear to auscultation bilaterally Cardio: Rate: regular rate GI: GI Palp: Yes Soft to palpation, Yes Tenderness to palpation present (GI) (around incision ) and No Guarding due to palpation present (GI) Aus cultation: normal bowel sounds Other: incision C/D/I, covered with Dermabond Psych: Appearance: grossly normal Mental Status: mental status grossly normal Affect: normal affect
--- NOTE | 2022-06-04 16:45 | PC.NURSE ---
[id number] Mother verbalizes she is able to independently latch with appropriate positioning/alignment. She denies any nipple discomfort and is responsively . Infant is currently meeting outcomes for weight, output, jaundice and feeding frequencies of 8-12 times in 24 hours. Mother declines any additional assistance/education at this time. Mother is encouraged to call for assistance if her infant doesn?t latch or there is discomfort with latching. Discussion was had concerning questions and concerns that the patient has at this time. Father of the baby had his brother (a Phlebotomist in [place]) on the phone as well. Mother was encouraged to breastfeed her as often as will swallow at the breast and prepared mother for the possible challenges with the 2nd 24 hours of cluster feeding and what to watch for to keep her infant pooping, peeing, swallowing with effective to encourage the milk production despite the large blood loss. Mother is aware that the QBL of >1300 could delay the full milk supply. Mother voiced understanding of information shared and the mom reminded of the mom/baby guide for an additional resource. Reported to the primary RN.
[2022-06-04 19:50] VITALS: BP 137/89; PULSE 69; RESP 18; TEMP 36.4
[2022-06-05] MEDS: HYDROcodone/acetaminophen (*CRX) 10-325 MG TABLET 1 TAB PO ×2 (05:09→07:56)
[2022-06-05] MEDS: MULTIVIT/MIN/PREN/FOL AC/IRON TABLET 1 TAB PO (07:55)
[2022-06-05] MEDS: DOCUSATE SODIUM 100 MG CAPSULE PO (07:55)
[2022-06-05] MEDS: IBUPROFEN 600 MG TABLET PO (07:56)
[2022-06-05] MEDS: POLYSACCHARIDE IRON COMPLEX 150 MG CAPSULE PO (07:56)
[2022-06-05 08:25] VITALS: BP 124/80; PULSE 80; RESP 16; TEMP 36.8; O2SAT 99
--- NOTE | 2022-06-05 13:08 | PC.NURSE ---
[id number] Mother led the conversation with her experience and plan to feed her so far and her ability to independently latch optimally without discomfort. Reminded parents to use good handwashing technique to prevent infection. Mother is feeding appropriately for growth of and understands stimulating to eat if needed. Infant has had appropriate feedings in the last 24 hours meets the outcomes for weight, output and jaundice at this time. Mother states she is confident to continue effectively breastfeed her infant at home, when to call for assistance and denies any additional assistance or education at this time. Reinforced understanding of milk production, transition of milk, signs of adequate intake, transition of stool, prevention/relief of engorgement, responsive watching for feeding cues, the different methods of stimulating infant to breastfeed 2-3 hours after the start of the last feeding, community resources, and when to call a provider using the resource of the mom and baby guide. Parents voiced understanding of the education shared. Reported to the primary RN.
[2022-06-06 09:02] VITALS: BP 153/93; PULSE 64; RESP 16; TEMP 36.8; O2SAT 100
== END 2022-06-05 11:38 | disposition home or self-care (01) | DRG 787 ==
LOC: ANHLDR 06-02 08:49 → ANHOB2 06-02 15:13
PROVIDERS: Admitting Provider Student in an Organized Health Care Education/Training Program; Visit Provider Student in an Organized Health Care Education/Training Program
PROC: 10D00Z1 Extraction of Products of Conception, Low, Open Approach (ICD-10-PCS; CPT 59514; principal; 2022-06-02 12:00)
DX: O44.53 Low lying placenta with hemorrhage, third trimester (principal); D62 Acute posthemorrhagic anemia; Z37.0 Single live birth; Z3A.40 40 weeks gestation of pregnancy; O69.81X0 Labor and delivery complicated by cord around neck, without compression, not applicable or unspecified; O90.81 Anemia of the puerperium
CPT/HCPCS: 36415; 36430; 85014; 85018; 85025; 85027; 86923; A9270; J0131; J0456; J0690; J2270; J2274; J2405; J2590; J3010; J3105; J7050; J7120; P9016

== ENCOUNTER 2022-06-25 14:30 | Outpatient (CLI) | payer BC, SELFPAY ==
[2022-06-25 14:54] LABS: Hematocrit 38.1 % (37.0-47.0); Hemoglobin 12.3 g/dL (12.0-15.0); Mean Corpuscular HGB Conc 32.3 g/dl (32-36); Mean Corpuscular Hemoglobin 28.7 pg (26-34); Mean Corpuscular Volume 88.8 fl (80-100); Mean Platelet Volume 8.6 fl (7.4-10.4); Platelet Count Result 482 k/mm3 (150-375); Red Blood Count 4.29 M/mm3 (4.2-5.4); Red Cell Distribution Width 14.9 % (11.5-14.5); White Blood Count 8.7 K/mm3 (4.5-10.0)
== END 2022-06-25 14:31 | disposition home or self-care (01) ==
LOC: ANHLAB 14:35
PROVIDERS: Visit Provider Student in an Organized Health Care Education/Training Program
DX: O72.1 Other immediate postpartum hemorrhage (principal)
CPT/HCPCS: 36415; 85027

== ENCOUNTER 2023-05-20 09:13 | Emergency (ER) | payer BC, SELFPAY ==
--- NOTE | 2023-05-20 09:16 | ED.URI ---
HPI - URI/Sore Throat General Chief Complaint: Upper Respiratory Infection Stated Complaint: Sore Throat Time Seen by Provider: 05/20/23 09:15 Source: patient Mode of arrival: ambulatory Limitations: no limitations Related Data Allergies Allergy/AdvReac Type Severity Reaction Status Date / Time Penicillins Allergy Intermediate Hives Verified 05/20/23 09:29 Sulfa (Sulfonamide Allergy Intermediate Hives Verified 05/20/23 09:29 Antibiotics) Review of Systems Review of Systems: All systems reviewed & are unremarkable except as noted in HPI and below Constitutional: Constitutional: Denies body ache(s), Denies fever(s), Denies headache(s), Denies malaise and Denies weakness Eyes: Eyes: Denies loss of vision ENT: Denies otalgia, Denies headache(s), Reports nasal congestion, Denies sinus pain and Reports sore throat Cardiovascular: Cardiovascular: Denies chest pain, Denies irregular heart rhythm and Denies dyspnea Respiratory: Respiratory: Denies cough and Denies dyspnea Gastrointestinal: Gastrointestinal: Denies abdominal pain, Denies melena, Denies hematochezia, Denies diarrhea, Denies nausea and Denies vomiting Musculoskeletal: Musculoskeletal: Denies back pain, Denies myalgias and Denies arthralgias Integumentary/Breasts: Skin/Breast: Denies pruritus and Denies rash Neurologic: Denies headache(s), Denies loss of vision and Denies weakness Psychiatric: Psychiatric: Reports no additional psychiatric complaints [facility] Past Medical History Medical History Cavernous malformation History of 1 Surgical History Surgical History Delivery by section (06/01/22) primary c/s [place] teeth removed Family History Family History Grandparent Breast cancer Other Depression Diabetes mellitus Social History Social History Smoking status: Former smoker Tobacco type: e-cigarettes/vaping Alcohol intake: former Substance use: never Lack of Transportation: No Lack of Food: Never True Current Housing: I Have Housing Concerned About Future Housing: No Difficulty Paying Gas/Electric Bills: No Difficulty Paying for Meds: No Currently Unemployed: No Education: Don't Know Difficulty w/ Childcare or Family Care: No Living arrangements: with family Occupation/Education: occupation Additional occupation/education comments: works from home Gender identity (if verbalized by the patient): Female Sexual Orientation (if Verbalized by the Patient): Straight or Heterosexual Spiritual care concerns: No Comments At time of signature, agree with nursing past medical, surgical, social and family history. There is no relevant family history pertinent to the presenting complaint. Exam Const: General: cooperative, healthy appearing, comfortable, no acute distress and well nourished Nutritional Appearance: well nourished Orientation/consciousness: patient oriented x3 Limitations: no limitations HENMT: Head: normal to inspection, normocephalic and atraumatic Ears: hearing grossly normal bilaterally, external ears normal, TM's normal bilaterally and EAC's normal Face/Nose/Sinus: Normal external nose present, Normal nares present, Normal nasal mucous membranes and turbinates present, Normal septum present, normal facial exam, sinuses nontender and face symmetric Face and sinus: normal facial exam, sinuses nontender and face symmetric Mouth: Yes Normal oral and palatal mucosa present, Yes lip normal and Yes moist mucous membranes Teeth and gingiva: dentition normal Throat: uvula midline, posterior oropharynx abnormal edema, erythema and exudates, tonsils absent and no uvular edema Eyes: General: appearance normal, both eyes and all related structures Alignment and Posi
[2023-05-20 09:23] VITALS: BP 109/69; PULSE 90; RESP 16; TEMP 36.4; O2SAT 100
== END 2023-05-20 09:55 | disposition home or self-care (01) ==
PROVIDERS: Emergency Provider Nurse Practitioner Family
DX: J02.0 Streptococcal pharyngitis (principal); F17.290 Nicotine dependence, other tobacco product, uncomplicated
CPT/HCPCS: 87880; 99213; G0463

== ENCOUNTER 2024-03-03 18:47 | Emergency (ER) | payer BC, SELFPAY ==
[2024-03-03 18:56] VITALS: BP 120/78; PULSE 82; RESP 16; TEMP 37.1; O2SAT 100
--- NOTE | 2024-03-03 19:17 | ED.URI ---
HPI - URI/Sore Throat General Chief Complaint: Upper Respiratory Infection Stated Complaint: I think I have strep Time Seen by Provider: 03/03/24 19:18 Source: patient, RN notes reviewed and old records reviewed Mode of arrival: ambulatory Limitations: no limitations History of Present Illness HPI Narrative: Patient presents with complaints of sore throat for 2 days. She reports that she has been drinking hot tea and honey and taking [id number] medication for her symptoms. She denies any fever, chills, sweats. She voices no other concerns or complaints at this time Related Data Home Medications ?Medication ?Instructions ?Recorded ?Confirmed ?Last Taken ?Type No Home Medications 03/03/24 Unknown History Allergies Allergy/AdvReac Type Severity Reaction Status Date / Time Penicillins Allergy Intermediate Hives Verified 03/03/24 19:00 Sulfa (Sulfonamide Allergy Intermediate Hives Verified 03/03/24 19:00 Antibiotics) Review of Systems Review of Systems: All systems reviewed & are unremarkable except as noted in HPI and below Constitutional: Constitutional: Reports no additional constitutional complaints ENT: Reports system reviewed and no additional complaints, except as documented and Reports sore throat Cardiovascular: Cardiovascular: Reports no additional cardiovascular complaints Respiratory: Respiratory: Reports no additional respiratory complaints Gastrointestinal: Gastrointestinal: Reports no additional gastrointestinal complaints PMFSH Past Medical History Medical History Cavernous malformation History of 1 Surgical History Surgical History Delivery by section (06/01/22) primary c/s [place] teeth removed Family History Family History Grandparent Breast cancer Other Depression Diabetes mellitus Social History Social History Smoking status: Former smoker Tobacco type: e-cigarettes/vaping Alcohol intake: former Substance use: never Lack of Transportation: No Lack of Food: Never True Current Housing: I Have Housing Concerned About Future Housing: No Difficulty Paying Gas/Electric Bills: No Difficulty Paying for Meds: No Currently Unemployed: No Education: Don't Know Difficulty w/ Childcare or Family Care: No Living arrangements: with family Occupation/Education: occupation Additional occupation/education comments: works from home Gender identity (if verbalized by the patient): Female Sexual Orientation (if Verbalized by the Patient): Straight or Heterosexual Spiritual care concerns: No Comments At the time of my signature, I reviewed and agree with the nursing past medical, surgical, social, and family history. There is no relevant family history pertinent to the patient complaint. Exam Const: General: cooperative, no acute distress, alert and awake Orientation/consciousness: oriented to person, oriented to place and oriented to time HENMT: Head: normal to inspection Throat: posterior oropharynx normal Resp: Effort & Inspection: normal respiratory effort and able to speak in complete sentences Auscultation: clear to auscultation bilaterally, no crackles, no rales, no rhonchi and no wheezes Cardio: Palpation: normal PMI Rate: regular rate Rhythm: regular rhythm Heart sounds: S1 normal heart sound present and S2 normal heart sound present Neuro: General: oriented to person, oriented to place and oriented to time Cranial nerves: Yes CN's II-XII intact bilaterally Psych: Appearance: grossly normal Thought process: Normal thought process present Insight: Good insight present (Psych) Judgement: Good judgement present (Psych) Course Course Level of Care: Express Care Visit Vital Signs Vital signs: Vital Signs Temperature 98.8 F 03/03/24 18:56 Pulse Rate 82 03/03/24 18:56 Respiratory Rate 16 03/03/24 18:56 Blood Pressure 120/78 03/03/24 18:56 Pulse Oximetry 100 03/03/24 18:56 Oxygen Delivery Room Air 03/03/24 18:56 Temperature 98.8 F 03/03/24 18:56 Pulse Rate 82 03/03/24 18:56 Respiratory Rate 16 03/03/24 18:56 Blood Pressure 120/78 03/03/24 18:56 Pulse Oximetry 100 03/03/24 18:56 Oxygen Delivery Room Air 03/03/24 18:56 Reviewed MDM - URI/Sore Throat MDM Narrative Medical decision making narrative: Reassuring physical exam. Negative strep, culture pending. Patient advised to treat symptoms with [id number] medications. Discharge instructions reviewed with patient, as well as provided in writing per nursing staff. The instructions also include specific and strict return/GO TO THE ER as well as f/u information. All questions have been answered, and the patient deny any further questions with discharge and discharge plan. Some parts of this dictation were generated by voice recognition software and may contain typographical and/or grammatical inaccuracies. Differential Diagnosis Differential diagnosis: Likely upper respiratory infection, viral infection and pharyngitis Discharge Plan Discharge Clinical Impression: URI (upper respiratory infection) Qualifiers: URI type: unspecified viral URI Qualified Code(s): J06.9 - Acute upper respiratory infection, unspecified Patient Disposition: Home, Self-Care Condition: Stable Instructions: Antibiotic Form Additional Instructions: Tylenol and/or ibuprofen per package instructions as needed for fever or pain. Follow-up with primary care provider. Emergency department for any new or worse symptoms Patient Language: Romanian Prescriptions: No Action No Home Medications Follow-up/Referrals: PHYSICIAN,ENGINE LATHE SET UP OPERATOR TOOL [Primary Care Provider] - Time of Disposition: 19:25
[2024-03-03 19:32] LABS: EDSTREPNEGPOS1 Negative (Negative)
== END 2024-03-03 19:30 | disposition home or self-care (01) ==
PROVIDERS: Emergency Provider Nurse Practitioner Family
DX: J06.9 Acute upper respiratory infection, unspecified (principal)
CPT/HCPCS: 87081; 87880; 99213; G0463